=== PATIENT | male | born 1940 | race Caucasian/White ===

== ENCOUNTER → 2018-11-21 08:37 | Outpatient (CLI) | payer MEDICARE, SELFPAY ==
--- NOTE | 2018-11-21 08:49 | FL_ITS ---
EXAM: Barium swallow/esophagram. INDICATION: ITS.REASON: DYSPHAGIA ORDERING PHYSICIAN: RADHA Estes PATIENT AGE: 78 years COMPARISON: None TECHNIQUE: In the upright position the patient was observed to swallow barium in both the AP and lateral view. The cervical esophagus was examined under fluoroscopy with images obtained. The patient was then placed prone in the right anterior oblique position and was observed to swallow barium with Valsalva technique . FLUOROSCOPY TIME: 1 minute and 2 seconds FINDINGS: There was mild tracheal aspiration. No annular constricting lesion, polypoid filling defect, or esophageal obstructing lesion evident. No hiatal hernia apparent. There is prominent cervical osteophytes causing some indentation upon the posterior aspect of the cervical esophagus. IMPRESSION: 1. Tracheal aspiration. Suggest modified barium swallow with speech pathologist for further evaluation 2. Otherwise negative
== END ==
PROVIDERS: PCP Physician Assistant; Visit Provider Physician Assistant
DX: R13.10 Dysphagia, unspecified (principal)
CPT/HCPCS: 74220

== ENCOUNTER → 2019-08-28 16:49 | Outpatient (CLI) | payer MEDICARE, SELFPAY ==
--- NOTE | 2019-08-28 | XR_ITS ---
PROCEDURE: XR LUMBAR SPINE MIN 4V Patient Age:78Y CLINICAL INDICATION: Low back pain which extends to the hips. A history of fracture age 21 to COMPARISON: ESO ESOPHAGUS (BA SWALLOW) from 09/09/2012 BE BARIUM ENEMA from 08/05/2014 FINDINGS: Today's five view lumbar series includes AP, lateral, both obliques along with lateral lumbosacral spot view L5/S1. Marked degenerative disc space narrowing. Mild posterior ridging at spondylosis. Facet hypertrophy L4/5: Pronounced degenerative disc space narrowing most pronounced to the right. Sclerotic changes at right endplates adjacent to the narrowed disc the narrowed disc space. Subtle left shift of L4-L5 vertebral body. Bilateral facet hypertrophy L3/4 disc intact. L3: VERTEBRAL BODY FRACTURE. Appears to be healing fracture which has occurred since 2014. July 2014 barium enema study includes a lateral view of the lumbosacral junction including inferior aspect of L3 shows and confirms change since that time. Today's lateral view shows vertical fracture line through mid body of L3 with slight anterior displacement of the anterior portion, anterior half of this L3 fracture. There appears to be some healing bone through this region I would favor that this is weeks to months old given the abrupt appearance of the fracture line an healing pattern.. Requires correlation with history of trauma. Fracture at the base of a rightward marginal osteophyte is also noted on the frontal projection . I would recommend MRI of the lumbar spine to further evaluate L3 L2/3 degenerative disc narrowing most pronounced to the left L2/3 disc space, with scant 2.5 mm retrolisthesis of L2 on L3.. Marginal osteophytes . L1/L2 a scant disc space narrowing with moderate marginal osteophytes most evident to the right and left SI joints and sacrum appear intact. Atherosclerotic calcification of slightly dilated aorta. Moderate stool throughout colon. Limited AP view hips unremarkable. Phleboliths throughout pelvic basin. IMPRESSION: 1.... Healing L3 vertebral Body Fracture.. Healing vertical fracture line through the midbody of L3 with slight anterior displacement anterior fracture fragment. Also note fracture through of right marginal osteophyte L3.-These fractures have occurred since 2014, but suspected they a more recent having occurred over the past several weeks-months. Correlation with trauma history required. *Recommend MRI to further evaluate 2. Progressive degenerative changes lumbar spine since 2014-details in text Degenerative disc narrowing and changes L5/S1 as well as L4/5 to the right, and L2/3 mainly to the left Dictated by: Malik Jacome MD 08/30/2019 09:23 Electronically signed by Malik Jacome MD in [place] 08/30/2019 09:23
== END ==
PROVIDERS: PCP Physician Assistant; Visit Provider Physician Assistant
DX: M54.5 Low back pain (principal)
CPT/HCPCS: 72110

== ENCOUNTER → 2019-08-29 09:53 | Outpatient (CLI) | payer MEDICARE, SELFPAY ==
[2019-08-29 14:27] LABS: Chloride 102 mmol/L (98-107); Sodium 138 mmol/L (136-145)
[2019-08-29 14:29] LABS: Blood Urea Nitrogen 20 mg/dl (9-20); Estimated Glomerular Filt Rate 94 ml/min (>60); GFR (African American) 114 ML/MIN (>60)
[2019-08-29 14:30] LABS: Alanine Aminotransferase 14 U/L (12-78); Albumin Level 4.1 g/dl (3.5-5.0); Albumin/Globulin Ratio 1.1 (1.1-1.8); Alkaline Phosphatase 148 U/L (38-126); Aspartate Amino Transferase 25 U/L (17-59); Bilirubin,Total 0.5 mg/dl (0.2-1.3); Calcium 9.8 mg/dl (8.4-10.2); Carbon Dioxide 26 mmol/L (22.0-30.0); Cholesterol 101 mg/dl (140-200); Globulin 3.7 g/dL (1.3-3.2); Glucose 113 mg/dl (74-100); Total Protein,Serum 7.8 g/dl (6.3-8.2); Triglycerides 55 mg/dl (30-150); VLDL Cholesterol 11 mg/dL (0-40)
[2019-08-29 14:31] LABS: Chol/HDL Ratio 1.8 (1-3.5); HDL Cholesterol 55 mg/dl (40-60)
[2019-08-29 14:42] LABS: Direct LDL Cholesterol 34.35 mg/dL (100-129)
[2019-08-29 14:49] LABS: Free T4 (Free Thyroxine) 0.94 ng/dl (0.78-2.19)
[2019-08-29 15:01] LABS: Thyroid Stimulating Hormone 2.76 uIU/mL (0.465-4.68)
[2019-08-29 15:05] LABS: Ferritin 51.7 ng/ml (17.9-464)
[2019-08-29 16:21] LABS: Hemoglobin A1C 5.4 % (4.0-6.0)
[2019-08-30 09:59] LABS: Iron 50 ug/dL (38-169); UIBC 275 ug/dL (111-343)
[2019-08-30 13:42] LABS: Iron Saturation 15 % (15-55)
== END ==
PROVIDERS: Visit Provider Physician Assistant
DX: E11.40 Type 2 diabetes mellitus with diabetic neuropathy, unspecified (principal); E03.9 Hypothyroidism, unspecified; E78.5 Hyperlipidemia, unspecified; D50.9 Iron deficiency anemia, unspecified
CPT/HCPCS: 36415; 80053; 80061; 82728; 83036; 83540; 83550; 84439; 84443

== ENCOUNTER → 2021-04-12 15:28 | Outpatient (CLI) | payer MEDICARE, SELFPAY ==
--- NOTE | 2021-04-12 | CA_ITS ---
APPROVED REPORT Right Lower Extremity Venous Study for DVT. Director [employer]: TAMEKA Indications Redness of right erwin on antibiotic treatment X 2months Vein Imaging CFV (R): compressive, spontaneous, phasic, augmentation SFJ (R): compressive, spontaneous, phasic, augmentation FEM (R): compressive, spontaneous, phasic, augmentation POP (R): compressive, spontaneous, phasic, augmentation DFV (R): compressive, spontaneous, phasic, augmentation PTV (R): compressive, spontaneous, phasic, augmentation GSV (R): compressive, spontaneous, phasic, augmentation SSV (R): compressive, spontaneous, phasic, augmentation Peroneals (R):compressive, spontaneous, phasic, augmentation GAS (R): compressive, spontaneous, phasic, augmentation Findings Color flow duplex demonstrates no evidence of DVT of the following right lower extremity Veins:Common Femoral Vein, Femoral Vein, Popliteal Vein, Posterior Tibial Veins, Peroneal Veins, Deep Femoral Vein. Negative for DVT. Conclusion Negative for DVT. Electronically signed by : Genaro Amaral MD 04/12/2021 18:36:34
== END ==
PROVIDERS: PCP Family Medicine; Visit Provider Physician Assistant
DX: R60.0 Localized edema (principal)
CPT/HCPCS: 93971